=== PATIENT | female | born 1970 | race Caucasian/White ===

== ENCOUNTER 2020-07-24 10:54 | Day surgery (SDC) | payer BC ==
[2020-07-23 08:44] VITALS: BMI 35.3
[2020-07-24] MEDS ORDERED: Scopolamine 1.5 mg/72 hour Patch ONE (13:46)
[2020-07-24] MEDS ORDERED: Midazolam HCl 2 mg/2 ml Vial ONE (13:46)
[2020-07-24] MEDS ORDERED: Lidocaine 1% MPF 2 ML VIAL ONE (13:46)
[2020-07-24] MEDS ORDERED: Famotidine/PF 20 mg/2ml Vial ONE (13:47)
[2020-07-24] MEDS ORDERED: PROPOFOL 20 ML ONE (13:52)
[2020-07-24] MEDS ORDERED: Fentanyl 100 MCG/2 ML VIAL ONE (13:52)
[2020-07-24] MEDS ORDERED: Lidocaine 1% PF 5 ML VIAL ONE (13:54)
[2020-07-24] MEDS ORDERED: Rocuronium Bromide 10 MG/ML (10ML VIAL) ONE (13:54)
[2020-07-24] MEDS ORDERED: ePHEDrine 50 MG/ML VIAL ONE (15:22)
[2020-07-24] MEDS ORDERED: Glycopyrrolate 0.2 MG/ML 5 ML SYRINGE ONE (15:25)
[2020-07-24] MEDS ORDERED: Ondansetron PF 4 MG/2 ML Vial ONE (15:26)
== END 2020-07-24 19:45 | disposition home or self-care (01) ==
LOC: CSHSDC 10:54
PROVIDERS: ATTEND Obstetrics & Gynecology
PROC: 0TSD4ZZ Reposition Urethra, Percutaneous Endoscopic Approach (ICD-10-PCS; principal; 2020-07-24)
DX: N39.3 Stress incontinence (female) (male) (principal); Z79.899 Other long term (current) drug therapy
CPT/HCPCS: C1781; J2250; J2405; J2704; J3010; J3490; S0028

== ENCOUNTER 2021-02-28 15:59 | Outpatient (CLI) | payer BC ==
[2021-02-28 18:13] LABS: Anion Gap 15 mmol/L (10-20); BUN (Urea Nitrogen) 16 mg/dL (9.8-20.1); Calc. Creatinine Clearance 0 mL/min (70-130); Calcium 9.7 mg/dL (7.8-10.44); Carbon Dioxide 30 mmol/L (22-29); Chloride 100 mmol/L (98-107); Glucose 86 mg/dL (70-105); Potassium 3.7 mmol/L (3.5-5.1); Sodium 141 mmol/L (136-145)
== END 2021-02-28 16:00 | disposition home or self-care (01) ==
LOC: CSHLAB 15:59
PROVIDERS: ATTEND Otolaryngology Otolaryngic Allergy
DX: Z01.818 Encounter for other preprocedural examination (principal); G47.33 Obstructive sleep apnea (adult) (pediatric)
CPT/HCPCS: 80048; 85014; 93005; 93010

== ENCOUNTER 2021-03-05 07:26 | Day surgery (SDC) | payer BC ==
[2021-02-25 11:50] VITALS: BMI 34.7
[2021-03-05] MEDS ORDERED: Lidocaine 1% MPF 2 ML VIAL ONE (09:06)
[2021-03-05] MEDS ORDERED: PROPOFOL 0 ML ONE (09:57)
[2021-03-05] MEDS ORDERED: PROPOFOL 20 ML ONE (10:08)
== END 2021-03-05 11:05 | disposition home or self-care (01) ==
LOC: CSHSDC 07:26
PROVIDERS: ATTEND Otolaryngology Otolaryngic Allergy
DX: G47.33 Obstructive sleep apnea (adult) (pediatric) (principal); I10 Essential (primary) hypertension; F32.A Depression, unspecified; Z79.899 Other long term (current) drug therapy
CPT/HCPCS: J2704

== ENCOUNTER 2021-03-29 09:27 | Outpatient (CLI) | payer BC | END 2021-03-29 09:28 | disposition home or self-care (01) | LOC: CSHMRI 09:27 | PROVIDERS: ATTEND Orthopaedic Surgery | DX: M23.92 Unspecified internal derangement of left knee (principal); S83.242A Other tear of medial meniscus, current injury, left knee, initial encounter; M94.262 Chondromalacia, left knee; M25.862 Other specified joint disorders, left knee ==